=== PATIENT | female | born 1950 | race Native Hawaiian/Other Pacific Islander ===

== ENCOUNTER 2020-07-30 18:40 | Outpatient (CLI) | payer OTHER ==
[2020-07-30 19:13] LABS: PLATELET COUNT 329 K/uL (152-353)
[2020-07-30 20:00] LABS: POTASSIUM 4.6 mmol/L (3.6-5.2)
== END 2020-07-30 20:16 | disposition home or self-care (01) ==
LOC: LAB 18:40
PROVIDERS: Nurse Practitioner Family
DX: Z00.00 Encounter for general adult medical examination without abnormal findings (principal); Z79.899 Other long term (current) drug therapy; R53.83 Other fatigue; E53.8 Deficiency of other specified B group vitamins; E55.9 Vitamin D deficiency, unspecified
CPT/HCPCS: 80053; 80061; 82306; 82607; 83036; 84439; 84443; 85027

== ENCOUNTER 2021-02-16 18:19 | Outpatient (CLI) | payer OTHER ==
[2021-02-16 19:15] LABS: POTASSIUM 4.6 mmol/L (3.6-5.2)
[2021-02-16 19:16] LABS: PLATELET COUNT 313 K/uL (152-353)
== END 2021-02-16 22:10 | disposition home or self-care (01) ==
LOC: LAB 18:19
PROVIDERS: ATTEND Nurse Practitioner Family
DX: Z00.00 Encounter for general adult medical examination without abnormal findings (principal); M19.90 Unspecified osteoarthritis, unspecified site; E55.9 Vitamin D deficiency, unspecified; R53.83 Other fatigue; J44.9 Chronic obstructive pulmonary disease, unspecified; Z79.899 Other long term (current) drug therapy; R53.81 Other malaise; J45.909 Unspecified asthma, uncomplicated; D64.89 Other specified anemias
CPT/HCPCS: 80053; 80061; 82306; 82607; 83036; 84439; 84443; 85007; 85027